=== PATIENT | male | born 1955 | race Two or more races ===

== ENCOUNTER → 2018-03-15 | Day surgery (SDC) | payer OTHER ==
[~2018-03-15] MED LIST: ASA81 MG PO; FOLIC ACID1 MG PO; LIPITOR80 MG PO; LISINOPRIL2.5 MG PO; MIRALAX17 GM PO; NEURONTIN300 MG PO; PERCOCET 5-3251 EACH PO; PROTONIX20 MG PO; VIT C-ROSE HIP500 MG PO; VITAMIN D22000 UNIT PO; VITAMIN E400 UNIT PO
== END | disposition home or self-care (01) ==
LOC: ADM 03-13 13:45 → CIR.AMB 07:00
DX: K40.90 Unilateral inguinal hernia, without obstruction or gangrene, not specified as recurrent (principal)

== ENCOUNTER 2019-04-13 09:03 | Outpatient (CLI) | payer OTHER | END 2019-04-13 09:17 | disposition home or self-care (01) | LOC: SONOGRAMA 09:03 → MAMO-SONO 09:15 → SONOGRAMA 09:17 | DX: M72.2 Plantar fascial fibromatosis (principal) ==